=== PATIENT | male | born 1945 | race Caucasian/White ===

== ENCOUNTER 2022-08-15 12:11 | Inpatient (IN) | payer MEDICARE, MEDICAID ==
[2022-08-15] MEDS ORDERED: Sodium Chloride 0.9% 10 ML Syringe IV PRN (14:00)
[2022-08-15] MEDS ORDERED: Albuterol HFA 18 Gm Inhaler INH PRN (17:02)
[2022-08-15] MEDS ORDERED: Lidocaine/Prilocaine 2.5-2.5% Crm 5 GM Tube TOP PRN (17:02)
[2022-08-15] MEDS: atorvaSTATin 10 MG Tab PO SCH (21:35)
[2022-08-15] MEDS: Bacitracin Oint 15 GM Tube TOP SCH (22:00)
[2022-08-16] MEDS: amLODIPine 2.5 MG Tab PO SCH (10:14)
[2022-08-16] MEDS: Aspirin 81 MG Tab.EC PO SCH (10:16)
[2022-08-16] MEDS: Metoprolol Succinate 25 MG Tab.ER PO SCH (10:16)
[2022-08-16] MEDS: Bacitracin Oint 15 GM Tube TOP SCH ×2 (10:17→12:30)
[2022-08-16] MEDS: Enoxaparin 40 MG/0.4 ML Syringe SUBCUT SCH (12:30)
[2022-08-16] MEDS: BACITRACIN TOP SCH ×2 (13:54→21:19)
[2022-08-16] MEDS: Ketotifen 0.025% Ophth Soln 5 ML Bottle EYEBOTH SCH ×2 (13:55→21:21)
[2022-08-16] MEDS: atorvaSTATin 10 MG Tab PO SCH (21:19)
[2022-08-17] MEDS: amLODIPine 2.5 MG Tab PO SCH (09:27)
[2022-08-17] MEDS: Aspirin 81 MG Tab.EC PO SCH (09:27)
[2022-08-17] MEDS: BACITRACIN TOP SCH ×3 (09:27→21:39)
[2022-08-17] MEDS: Ketotifen 0.025% Ophth Soln 5 ML Bottle EYEBOTH SCH ×2 (09:28→21:40)
[2022-08-17] MEDS: Metoprolol Succinate 25 MG Tab.ER PO SCH (09:28)
[2022-08-17] MEDS: Enoxaparin 40 MG/0.4 ML Syringe SUBCUT SCH (11:59)
[2022-08-17] MEDS: atorvaSTATin 10 MG Tab PO SCH (21:38)
[2022-08-17] MEDS: Budesonide 0.5 MG/2 ML Neb Susp NEB SCH (21:39)
[2022-08-18] MEDS: Budesonide 0.5 MG/2 ML Neb Susp NEB SCH ×2 (06:16→21:33)
[2022-08-18 08:00] LABS: ANION GAP 9.3 mmol/L (5-15)
[2022-08-18] MEDS: Ketotifen 0.025% Ophth Soln 5 ML Bottle EYEBOTH SCH ×2 (09:00→21:35)
[2022-08-18] MEDS: BACITRACIN TOP SCH ×3 (09:00→21:35)
[2022-08-18] MEDS: Aspirin 81 MG Tab.EC PO SCH (09:49)
[2022-08-18] MEDS: amLODIPine 2.5 MG Tab PO SCH (09:58)
[2022-08-18] MEDS: Metoprolol Succinate 25 MG Tab.ER PO SCH (10:01)
[2022-08-18] MEDS: Enoxaparin 40 MG/0.4 ML Syringe SUBCUT SCH (12:17)
[2022-08-18] MEDS: atorvaSTATin 10 MG Tab PO SCH (21:33)
[2022-08-22] MEDS ORDERED: Acetaminophen 325 MG Tab ONE (00:04)
[2022-08-25] MEDS ORDERED: Metoprolol Succinate 25 MG Tab.ER ONE (08:24)
[2022-08-25] MEDS ORDERED: Enoxaparin 40 MG/0.4 ML Syringe ONE (08:24)
[2022-08-25] MEDS ORDERED: amLODIPine 2.5 MG Tab ONE (08:24)
[2022-08-25] MEDS ORDERED: Budesonide 0.5 MG/2 ML Neb Susp ONE (08:24)
[2022-08-25] MEDS ORDERED: atorvaSTATin 10 MG Tab ONE (08:24)
[2022-08-25] MEDS ORDERED: Aspirin 81 MG Tab.EC ONE (08:24)
[2022-08-26] MEDS ORDERED: Budesonide 0.5 MG/2 ML Neb Susp ONE (08:26)
[2022-08-26] MEDS ORDERED: Aspirin 81 MG Tab.EC ONE (08:26)
[2022-08-26] MEDS ORDERED: amLODIPine 2.5 MG Tab ONE (08:26)
[2022-08-26] MEDS ORDERED: Enoxaparin 40 MG/0.4 ML Syringe ONE (08:26)
[2022-08-26] MEDS ORDERED: Metoprolol Succinate 25 MG Tab.ER ONE (08:26)
[2022-08-26] MEDS ORDERED: atorvaSTATin 10 MG Tab ONE (08:26)
[2022-08-27] MEDS ORDERED: Enoxaparin 40 MG/0.4 ML Syringe ONE (08:48)
[2022-08-27] MEDS ORDERED: atorvaSTATin 10 MG Tab ONE (08:48)
[2022-08-27] MEDS ORDERED: Psyllium Husk Powder Sugar Free 5.85 GM Packet ONE ×2 (08:48→12:32)
[2022-08-27] MEDS ORDERED: Budesonide 0.5 MG/2 ML Neb Susp ONE (08:48)
[2022-08-27] MEDS ORDERED: Aspirin 81 MG Tab.EC ONE (08:48)
[2022-08-27] MEDS ORDERED: Metoprolol Succinate 25 MG Tab.ER ONE (08:48)
[2022-08-27] MEDS ORDERED: Albuterol/Ipratropium 3.0-0.5 MG/3 ML Neb Soln ONE ×3 (08:48→14:50)
[2022-08-27] MEDS ORDERED: amLODIPine 2.5 MG Tab ONE (08:48)
[2022-08-28] MEDS ORDERED: Psyllium Husk Powder Sugar Free 5.85 GM Packet ONE ×2 (07:15→08:44)
[2022-08-28] MEDS ORDERED: atorvaSTATin 10 MG Tab ONE (07:15)
[2022-08-28] MEDS ORDERED: Metoprolol Succinate 25 MG Tab.ER ONE (07:15)
[2022-08-28] MEDS ORDERED: Albuterol/Ipratropium 3.0-0.5 MG/3 ML Neb Soln ONE ×5 (07:15→19:26)
[2022-08-28] MEDS ORDERED: Budesonide 0.5 MG/2 ML Neb Susp ONE (07:15)
[2022-08-28] MEDS ORDERED: Aspirin 81 MG Tab.EC ONE (07:15)
[2022-08-28] MEDS ORDERED: amLODIPine 2.5 MG Tab ONE (07:15)
[2022-08-29] MEDS ORDERED: amLODIPine 2.5 MG Tab ONE (06:55)
[2022-08-29] MEDS ORDERED: Budesonide 0.5 MG/2 ML Neb Susp ONE (06:55)
[2022-08-29] MEDS ORDERED: Albuterol/Ipratropium 3.0-0.5 MG/3 ML Neb Soln ONE ×5 (06:55→18:51)
[2022-08-29] MEDS ORDERED: Psyllium Husk Powder Sugar Free 5.85 GM Packet ONE ×2 (06:55→08:09)
[2022-08-29] MEDS ORDERED: atorvaSTATin 10 MG Tab ONE (06:55)
[2022-08-29] MEDS ORDERED: Metoprolol Succinate 25 MG Tab.ER ONE (06:55)
[2022-08-29] MEDS ORDERED: Aspirin 81 MG Tab.EC ONE (06:55)
[2022-08-30] MEDS ORDERED: Albuterol/Ipratropium 3.0-0.5 MG/3 ML Neb Soln ONE ×5 (02:35→20:02)
[2022-08-30] MEDS ORDERED: Psyllium Husk Powder Sugar Free 5.85 GM Packet ONE (08:32)
[2022-08-30] MEDS ORDERED: Budesonide 0.5 MG/2 ML Neb Susp ONE ×2 (12:13→20:02)
[2022-08-30] MEDS ORDERED: Furosemide 20 MG/2 ML VIAL ONE (13:31)
[2022-08-30] MEDS ORDERED: atorvaSTATin 10 MG Tab ONE (20:01)
[2022-08-30] MEDS ORDERED: Albuterol 0.083% 2.5 MG/3 ML Neb Soln ONE (23:40)
[2022-08-31] MEDS ORDERED: hydrOXYzine HCl 25 MG Tab ONE (00:42)
[2022-08-31] MEDS ORDERED: guaiFENesin 600 MG Tab.ER ONE ×2 (00:56→19:41)
[2022-08-31] MEDS ORDERED: Albuterol/Ipratropium 3.0-0.5 MG/3 ML Neb Soln ONE ×4 (05:19→19:39)
[2022-09-01] MEDS ORDERED: guaiFENesin 600 MG Tab.ER ONE ×2 (05:01→10:00)
[2022-09-01] MEDS ORDERED: Albuterol/Ipratropium 3.0-0.5 MG/3 ML Neb Soln ONE ×4 (05:01→19:36)
[2022-09-01] MEDS ORDERED: Psyllium Husk Powder Sugar Free 5.85 GM Packet ONE (09:35)
[2022-09-02] MEDS ORDERED: Metoprolol Succinate 25 MG Tab.ER ONE (07:14)
[2022-09-02] MEDS ORDERED: Aspirin 81 MG Tab.EC ONE (07:14)
[2022-09-02] MEDS ORDERED: Albuterol/Ipratropium 3.0-0.5 MG/3 ML Neb Soln ONE ×3 (07:14→11:03)
[2022-09-02] MEDS ORDERED: Budesonide 0.5 MG/2 ML Neb Susp ONE (07:14)
[2022-09-02] MEDS ORDERED: guaiFENesin 600 MG Tab.ER ONE ×2 (07:14→08:13)
[2022-09-02] MEDS ORDERED: Psyllium Husk Powder Sugar Free 5.85 GM Packet ONE ×2 (07:14→08:13)
[2022-09-13 14:32] LABS: ANION GAP 13.9 mmol/L (5-15)
== END 2022-09-02 10:00 | DRG 947 ==
LOC: VM.MS 14:33 → VM.ZCENSUS 08-19 12:13
PROVIDERS: ADMIT Family Medicine; ATTEND Family Medicine
DX: R53.81 Other malaise (principal); J96.21 Acute and chronic respiratory failure with hypoxia; U07.1 COVID-19; I50.9 Heart failure, unspecified; I25.10 Atherosclerotic heart disease of native coronary artery without angina pectoris; H40.9 Unspecified glaucoma; R19.7 Diarrhea, unspecified; I73.9 Peripheral vascular disease, unspecified; I77.9 Disorder of arteries and arterioles, unspecified; I11.0 Hypertensive heart disease with heart failure; F41.9 Anxiety disorder, unspecified; M81.0 Age-related osteoporosis without current pathological fracture; Z91.09 Other allergy status, other than to drugs and biological substances; Z79.82 Long term (current) use of aspirin; Z85.118 Personal history of other malignant neoplasm of bronchus and lung; Z85.048 Personal history of other malignant neoplasm of rectum, rectosigmoid junction, and anus; Z79.899 Other long term (current) drug therapy; Z86.73 Personal history of transient ischemic attack (TIA), and cerebral infarction without residual deficits; Z93.3 Colostomy status; Z87.891 Personal history of nicotine dependence; Z87.01 Personal history of pneumonia (recurrent)
CPT/HCPCS: 36415; 71045; 80048; 85025; 85027; 85379; 86140; 87324; 87493; 94640; 94760; 95851-GO; 97110-GP; 97116-GP; 97162-GP; 97165-GO; 97530-GP; 97535-GO; A9270-GY; J1642; J1650; J7620-GY